=== PATIENT | female | born 1980 | race Caucasian/White ===

== ENCOUNTER → 2019-03-03 10:00 | Outpatient (CLI) | payer OTHER, SELFPAY ==
--- NOTE | 2019-03-03 | DI.MG.S_ITS ---
BILATERAL DIGITAL SCREENING MAMMOGRAM 3D/2D WITH CAD: 03/03/2019 CLINICAL: Routine screening. Family history of breast cancer. Comparison is made to exams dated: 02/24/2018 mammogram - [facility] and 09/17/2013 mammogram - [facility]. The tissue of both breasts is extremely dense, which lowers the sensitivity of mammography. Current study was also evaluated with a Computer Aided Detection (CAD) system. There is a new oval mass in the left breast at 7 o'clock anterior depth. No other significant masses, calcifications, or other findings are seen in either breast. IMPRESSION: INCOMPLETE: NEEDS ADDITIONAL IMAGING EVALUATION The new oval mass in the left breast likely represents a cyst and is indeterminate. A diagnostic mammogram and ultrasound is recommended. This exam was interpreted at Station ID: [id number]. NOTE: For mammograms, a report in lay terms will be sent to the patient. Approximately 15% of breast malignancies will not be visualized mammographically. In the management of a palpable breast mass, a negative mammogram must not discourage biopsy of a clinically suspicious lesion. Electronically Signed By: Marilynn rush/william:03/03/2019 11:56:41 letter sent: Additional Imaging Needed ACR BI-RADS Category 0: Incomplete 3340F
== END ==
PROVIDERS: Visit Provider Physician Assistant
DX: N63.23 Unspecified lump in the left breast, lower outer quadrant (principal); Z80.3 Family history of malignant neoplasm of breast
CPT/HCPCS: 77063; 77067

== ENCOUNTER → 2019-03-18 14:30 | Outpatient (CLI) | payer OTHER, SELFPAY ==
--- NOTE | 2019-03-18 14:31 | DI.US.S_ITS ---
ULTRASOUND OF LEFT BREAST: 03/18/2019 CLINICAL: Patient returns today to evaluate a density in the left breast. Comparison is made to exams dated: 03/18/2019 mammogram, 03/03/2019 mammogram, 02/24/2018 mammogram - [facility], and 09/17/2013 mammogram - [facility]. Color flow and real-time ultrasound of the left breast were performed. Ferrara scale images of the real-time examination were reviewed. There is a benign 0.5 cm x 0.3 cm x 0.7 cm oval cyst in the left breast at 7 o'clock in the retroareolar region. This oval cyst is anechoic. This correlates with mammography findings. Color flow imaging demonstrates that there is no vascularity present. IMPRESSION: BENIGN There is no sonographic evidence of malignancy. The 0.5 cm x 0.3 cm x 0.7 cm oval cyst in the left breast is consistent with a simple cyst and is benign. A 1 year screening mammogram is recommended. This exam was interpreted at Station ID: [id number]. SUMMARY: Findings and recommendations were discussed with the patient during today's visit. Electronically Signed By: Deniz roman/william:03/18/2019 16:07:00 letter sent: Normal Exam Ultrasound BI-RADS: 2 Benign
--- NOTE | 2019-03-18 14:31 | DI.MG.S_ITS ---
UNILATERAL LEFT DIGITAL DIAGNOSTIC MAMMOGRAM 3D/2D WITH ADDITIONAL VIEWS: 03/18/2019 CLINICAL: Additional evaluation requested from prior study. Family history of breast cancer. Comparison is made to exams dated: 03/03/2019 mammogram, 02/24/2018 mammogram - [facility], and 09/17/2013 mammogram - [facility]. The tissue of left breast is extremely dense, which lowers the sensitivity of mammography. The recently described 0.5 cm oval mass in the left breast at 7 o'clock in the retroareolar region persists on additional views. No other significant masses or calcifications are seen in the breast. IMPRESSION: INCOMPLETE: NEEDS ADDITIONAL IMAGING EVALUATION The 0.5 cm oval mass in the left breast likely represents a cyst but remains indeterminate. An ultrasound is recommended. This exam was interpreted at Station ID: [id number]. NOTE: For mammograms, a report in lay terms will be sent to the patient. Approximately 15% of breast malignancies will not be visualized mammographically. In the management of a palpable breast mass, a negative mammogram must not discourage biopsy of a clinically suspicious lesion. SUMMARY: The recommended ultrasound is scheduled to immediately follow this examination. Electronically Signed By: Deniz Márquez M.D. aty/:03/18/2019 16:04:51 ACR BI-RADS Category 0: Incomplete 3340F
== END ==
PROVIDERS: PCP Physician Assistant; Visit Provider Physician Assistant
DX: R92.8 Other abnormal and inconclusive findings on diagnostic imaging of breast (principal); N60.02 Solitary cyst of left breast; Z80.3 Family history of malignant neoplasm of breast
CPT/HCPCS: 76642; 77065; G0279

== ENCOUNTER → 2019-12-02 16:45 | Outpatient (CLI) | payer OTHER, SELFPAY ==
[2019-12-02 17:19] LABS: Add Manual Diff / Slide Review NO; Basophils Absolute Auto 0 /uL (0-100); Basophils Percent Auto 0.8 % (0-2); Eosinophils Absolute Auto 100 /uL (0-450); Eosinophils Percent Auto 2.2 % (2-4); Hematocrit 42.6 % (36-46); Hemoglobin 14.5 g/dL (12.0-16.0); Lymphocytes Absolute Auto 1800 /uL (1100-4500); Lymphocytes Percent Auto 30.1 % (25-40); Mean Corpuscular Hemoglobin 29.9 PG (26-34); Mean Corpuscular Volume 87.7 fL (80-100); Monocytes Absolute Auto 400 /uL (0-900); Monocytes Percent Auto 6.8 % (3-14); Neutrophils Absolute Auto 3500 /uL (1500-7000); Neutrophils Percent Auto 60.1 % (50-75); Platelet Count 190 X10^3/uL (150-400); Red Blood Cell Count 4.86 X10^6/uL (4.0-5.2); Red Cell Distribution Width 13.2 % (11.6-14.8); White Blood Cell Count 5.9 X10^3/uL (4.5-11.0)
[2019-12-02 18:13] LABS: Alanine Aminotransferase 20 IU/L (<35); Albumin Globulin Ratio 1.9 (1.0-2.8); Alkaline Phosphatase 58 U/L (38-126); Aspartate Aminotransferase 27 IU/L (14-36); BUN Creatinine Ratio 22.5 (6-22); Bilirubin Total 0.6 mg/dL (0.2-1.3); Blood Urea Nitrogen 18 mg/dL (7-17); Carbon Dioxide 29 mmol/L (22-32); Chloride 102 mmol/L (98-107); Cholesterol 165 mg/dL (140-199); Estimated Glomerular Filt Rate > 60.0 mL/min (>60); Globulin 2.6 g/dL (1.7-4.1); Glucose 83 mg/dL (70-100); HDL Cholesterol 88 mg/dL (40-60); HEMOLYSIS < 15 (0-50); LDL Cholesterol Calculated 65 mg/dL (<100); Potassium 4.7 mmol/L (3.4-5.1); Sodium 139 mmol/L (137-145); Total Protein 7.6 g/dL (6.3-8.2); Triglycerides 60 mg/dL (35-150)
[2019-12-02 18:44] LABS: Thyroid Stimulating Hormone 1.47 uIU/mL (0.47-4.68)
== END ==
PROVIDERS: PCP Physician Assistant; Visit Provider Physician Assistant
DX: Z00.00 Encounter for general adult medical examination without abnormal findings (principal); Z13.220 Encounter for screening for lipoid disorders; Z13.6 Encounter for screening for cardiovascular disorders
CPT/HCPCS: 36415; 80053; 80061; 84443; 85025

== ENCOUNTER → 2020-07-05 16:22 | Outpatient (CLI) | payer OTHER, SELFPAY ==
[2020-07-05 17:02] LABS: Add Manual Diff / Slide Review NO; Basophils Absolute Auto 100 /uL (0-100); Eosinophils Absolute Auto 100 /uL (0-450); Hematocrit 40.6 % (36-46); Hemoglobin 13.7 g/dL (12.0-16.0); Lymphocytes Absolute Auto 1500 /uL (1100-4500); Lymphocytes Percent Auto 25.1 % (25-40); Mean Corpuscular HGB Conc 33.7 % (30-36); Mean Corpuscular Hemoglobin 29.9 PG (26-34); Mean Corpuscular Volume 88.8 fL (80-100); Monocytes Absolute Auto 400 /uL (0-900); Monocytes Percent Auto 6.3 % (3-14); Neutrophils Absolute Auto 4000 /uL (1500-7000); Neutrophils Percent Auto 66.6 % (50-75); Platelet Count 174 X10^3/uL (150-400); Red Blood Cell Count 4.58 X10^6/uL (4.0-5.2); Red Cell Distribution Width 12.9 % (11.6-14.8); White Blood Cell Count 6.1 X10^3/uL (4.5-11.0)
[2020-07-05 17:37] LABS: Free T4, Direct Thyroxine 1.16 ng/dL (0.78-2.19)
[2020-07-05 17:51] LABS: Estradiol, Total 76.7 pg/mL; Thyroid Stimulating Hormone 1.66 uIU/mL (0.47-4.68)
== END ==
PROVIDERS: Referring Provider Specialist; Visit Provider Specialist
DX: L65.9 Nonscarring hair loss, unspecified (principal)
CPT/HCPCS: 36415; 82670; 84439; 84443; 85025

== ENCOUNTER → 2020-08-08 08:24 | Outpatient (CLI) | payer OTHER, SELFPAY ==
[2020-08-09 19:19] LABS: COVID19 Sendout Not Detected (Not Detect)
== END ==
PROVIDERS: PCP Specialist; Visit Provider Physician Assistant
DX: Z11.59 Encounter for screening for other viral diseases (principal)
CPT/HCPCS: 87635

== ENCOUNTER 2020-08-11 06:37 | Day surgery (SDC) | payer OTHER, SELFPAY ==
[2020-08-08 15:03] VITALS: BMI 21.8
[2020-08-11] VITALS (8 sets, daily range): BP systolic 87–117; BP diastolic 50–74; PULSE 56–90; RESP 11–25; TEMP 36.1–36.9; O2SAT 98–100; BMI 21.9
--- NOTE | 2020-08-11 07:22 | PM.PREOP ---
Pre-operative Note COVID-19 COVID-19 status: Negative Result date/Date tested (Pos, Neg/Pending): 08/08/20 Interval Note History & Physical reviewed/Exam performed by Physician: Yes Changes to H&P: No
[2020-08-11] MEDS: LACTATED RINGERS 1,000 ML 100 ML IV (07:31)
--- NOTE | 2020-08-11 08:06 | SUR.OPER ---
Lithotomy on padded OR bed, head on pillow, arms secured on padded arm boards at <90 degrees abduction. Legs secured in padded yellow fins stirrups.
[2020-08-11] MEDS: BUPIVACAINE 0.5% W/ EPI (PF) 30 ML VIAL INJ (08:13)
--- NOTE | 2020-08-11 08:27 | P.OP_ITS ---
Operative Date/Time/Diagnoses Date of procedure: 08/11/20 Time of procedure: 08:27 Pre-op diagnosis: Undesired fertility removal of IUD Post-op diagnosis: same Procedure & Clinicians Procedure: Removal of Mirena IUD and laparoscopic tubal ligation by fulguration Same procedure as scheduled: Yes Indications: Wish for sterilization and removal of IUD Surgeon: Roxana العراقي Click Yes if Unassisted: Yes Anesthesia Type: General Operative Notes Findings: 1 mild adhesion between the descending colon on the anterior abdominal wall that was lysed. Normal uterus, tubes, ovaries. Normal bowel surface, normal appendix, normal liver edge and gallbladder dome. Mirena IUD removed without difficulty Closure Type: primary Specimen(s): none sent Estimated Blood Loss (mL): 5 Blood products transfused: none Procedure in detail: Patient was brought to the operating room where she underwent general anesthesia. She was placed in low yellowfin stirrups and prepped and draped in usual sterile fashion. No antibiotics were indicated. Pulsatile stockings were in place and functional. Warming was with blankets. A speculum was placed in the vagina. The IUD strings were grasped with a clamp and Mirena IUD removed without difficulty. The area of the incisions were injected with half percent Marcaine with epinephrine. An incision was made in the umbilicus with a scalpel and the Verres needle placed in the abdomen. Confirmation of correct placement of the needle was performed by withdrawing on the syringe and then allowing fluid to fall freely through the needle. The abdomen was insufflated to 4 L of CO2. A 5 mm trocar was placed under direct v isualization. A 5 mm trochar was placed in the right lower quadrant under direct visualization after incising the skin. There did not appear to be any damage with placement of the trocars. The adhesion to the anterior abdominal wall was cauterized and cut with the PK generator. The right fallopian tube was grasped, cauterized in 3 places and cut across the fallopian tube with the PK generator. Same procedure was performed on the left fallopian tube. The CO2 was allowed to escape from the abdomen. The trochars were removed. Skin was closed with 4-0 monocryl. The patient went to recovery room in good condition. Complications: none Post-operative Condition: stable Disposition: same day surgery Plan for aftercare: Home when awake and stable
--- NOTE | 2020-08-11 09:04 | SUR.PHASEII ---
Pt arrived to phase II via stretcher. Pt sitting up in bed, alert and oriented x3. pt denies any pain/or discomfort at this time. Bed in lowest position and call light given to pt. pt appears comfortable at this time and is awaiting arrival of at this time.
== END 2020-08-11 09:48 | disposition home or self-care (01) ==
PROVIDERS: PCP Specialist; Referring Provider Specialist; Visit Provider Specialist
PROC: (CPT 58671; principal; 2020-08-11 07:45)
DX: Z30.2 Encounter for sterilization (principal); T83.39XA Other mechanical complication of intrauterine contraceptive device, initial encounter
CPT/HCPCS: 58670; 58301; J1100; J1885; J2250; J2405; J2704; J3010